=== PATIENT | male | born 1995 | race Caucasian/White ===

== ENCOUNTER 2024-11-21 16:52 | Emergency (ER) | payer OTHER ==
[~2024-11-21] VITALS: Ht 167.6 cm; Wt 78.0 kg
[2024-11-21 17:35] VITALS: TEMP 36.6; O2SAT 99
[2024-11-21 22:10] VITALS: BP 139/88; PULSE 68; RESP 13; O2SAT 98
== END 2024-11-21 22:15 | disposition home or self-care (01) ==
LOC: ER 16:52
DX: R00.2 Palpitations (principal)
CPT/HCPCS: 93005; 99283